=== PATIENT | female | born 1970 | race Caucasian/White ===

== ENCOUNTER 2023-03-07 14:00 | Inpatient (IN) | payer OTHER ==
[~2023-03-07] VITALS: Ht 165.1 cm; Wt 77.3 kg
[2023-03-07] MEDS ORDERED: ACETAMINOPHEN 325MG TABLET PO STA (14:18)
[2023-03-07] MEDS ORDERED: ONDANSETRON HCL 4MG/2ML INJ IV STA (14:18)
[2023-03-07] MEDS ORDERED: MECLIZINE 25MG TABLET PO ONE (14:30)
[2023-03-07 16:04] LABS: BASOPHILS % 0.7 % (0.0-2.0); HEMATOCRIT. 40.6 % (36.0-48.0); HEMOGLOBIN. 13.7 g/dL (12.0-16.0); LYMPHOCYTES % 25.1 % (20.0-50.0); MEAN CORPUSCULAR HEMOGLOBIN 30.4 pg (28.0-32.0); MEAN CORPUSCULAR HGB CONC 33.7 g/dL (31.0-37.0); MEAN CORPUSCULAR VOLUME 90.2 fL (81.0-99.0); MEAN PLATELET VOLUME 7.8 fl (7.4-10.4); MONOCYTES % 7.1 % (2.0-8.0); NEUTROPHILS % 66.1 % (40.0-76.0); PLATELET 339 x1000/uL (130-400); RED CELL DISTRIBUTION WIDTH 14.1 % (11.6-14.6); WHITE BLOOD COUNT 7.6 x1000/uL (4.5-11.0)
[2023-03-07 16:17] LABS: CHLORIDE 108 mEq/L (98-107); INDEX HEMOLYSI 1 (1-3); INDEX ICTERIC 1 (1-4); INDEX LIPEMIC 1 (1-3); POTASSIUM 3.4 mEq/L (3.5-5.1); SODIUM 137 mEq/L (136-145)
[2023-03-07 16:26] LABS: ALANINE AMINOTRANSFERASE 27 IU/L (13-61); ALBUMIN 4.1 g/dL (3.4-5.0); ASPARTATE AMINOTRANSFERASE 13 IU/L (15-37); BILIRUBIN TOTAL 0.4 mg/dL (0.1-1.0); CARBON DIOXIDE 26 mEq/L (21-32); CREATININE 0.7 mg/dL (0.6-1.3); GLUCOSE 95 mg/dL (70-105); TROPONIN I HIGH SENSITIVITY 4 ng/L (<54); UREA NITROGEN BLOOD 11 mg/dL (7-21)
[2023-03-07 16:46] LABS: HCG SCREEN NEGATIVE
[2023-03-07] MEDS ORDERED: HYDROCODONE/ACETAMINOPHEN 5/325MG TABLET PO PRN (22:45)
[2023-03-07] MEDS ORDERED: NALOXONE HCL 0.4MG/ML VIAL IV PRN (23:00)
[2023-03-07] MEDS ORDERED: ONDANSETRON HCL 4MG/2ML INJ IV PRN (23:00)
[2023-03-07] MEDS: LOSARTAN 50 MG TABLET PO SCH (23:25)
[2023-03-07 23:30] VITALS: BP 139/89; PULSE 61; RESP 17; TEMP 98.3
[2023-03-08] VITALS (8 sets, daily range): BP systolic 98–139; BP diastolic 67–85; PULSE 57–77; RESP 13–20; TEMP 97.3–98.3; O2SAT 98
[2023-03-08] MEDS: LOSARTAN 50 MG TABLET PO SCH (08:19)
[2023-03-08 08:31] LABS: BASOPHILS % 0.9 % (0.0-2.0); EOSINOPHILS % 1.2 % (0.0-5.0); HEMATOCRIT. 41.7 % (36.0-48.0); HEMOGLOBIN. 13.9 g/dL (12.0-16.0); MEAN CORPUSCULAR HEMOGLOBIN 30.4 pg (28.0-32.0); MEAN CORPUSCULAR HGB CONC 33.3 g/dL (31.0-37.0); MEAN CORPUSCULAR VOLUME 91.2 fL (81.0-99.0); MEAN PLATELET VOLUME 7.7 fl (7.4-10.4); MONOCYTES % 9.6 % (2.0-8.0); NEUTROPHILS % 51.3 % (40.0-76.0); PLATELET 313 x1000/uL (130-400); RED BLOOD CELL COUNT 4.57 mill/uL (4.2-5.4); RED CELL DISTRIBUTION WIDTH 14.4 % (11.6-14.6); WHITE BLOOD COUNT 5.8 x1000/uL (4.5-11.0)
[2023-03-08 08:59] LABS: CHLORIDE 107 mEq/L (98-107); INDEX HEMOLYSI 1 (1-3); INDEX ICTERIC 1 (1-4); INDEX LIPEMIC 1 (1-3); POTASSIUM 4.2 mEq/L (3.5-5.1); SODIUM 139 mEq/L (136-145)
[2023-03-08] MEDS ORDERED: ASPIRIN 81MG TABLET PO SCH (09:00)
[2023-03-08] MEDS ORDERED: AMLODIPINE 10MG TABLET PO SCH (09:00)
[2023-03-08 09:13] LABS: ALANINE AMINOTRANSFERASE 26 IU/L (13-61); ALBUMIN 3.6 g/dL (3.4-5.0); ASPARTATE AMINOTRANSFERASE 15 IU/L (15-37); BILIRUBIN TOTAL 0.7 mg/dL (0.1-1.0); CALCIUM 8.8 mg/dL (8.5-10.1); CARBON DIOXIDE 27 mEq/L (21-32); CHOLESTEROL 199 mg/dL (<200); CREATININE 0.7 mg/dL (0.6-1.3); GLUCOSE 80 mg/dL (70-105); HDL CHOLESTEROL 51 mg/dL (40-59); LDL CHOLESTEROL 135 mg/dL (5-100); PROTEIN TOTAL 7.3 g/dL (6.0-8.3); TRIGLYCERIDE 88 mg/dL (0-150); UREA NITROGEN BLOOD 13 mg/dL (7-21)
[2023-03-08 15:15] LABS: CLARITY URINE CLEAR (CLEAR); COLOR URINE YELLOW (YELLOW); GLUCOSE URINE NEGATIVE (NEGATIVE); KETONES URINE NEGATIVE (NEGATIVE); LEUKOCYTE ESTERASE URINE NEGATIVE (NEGATIVE); NITRITE URINE NEGATIVE (NEGATIVE); OCCULT BLOOD URINE NEGATIVE (NEGATIVE); PROTEIN URINE NEGATIVE (NEGATIVE); SPECIFIC GRAVITY URINE 1.005 (1.005-1.030); UROBILINOGEN URINE 0.2 E.U./dL (0.2-1.0)
[2023-03-08] MEDS ORDERED: AMLO10TA80 MT (17:29)
[2023-03-08] MEDS ORDERED: POTASSIUM CHLORIDE 20MEQ TABLET SR PO NR (17:30)
[2023-03-08] MEDS ORDERED: ERGO1250 PO (17:31)
== END 2023-03-08 19:15 | disposition home or self-care (01) | DRG 48 ==
LOC: ER 14:00 → 3WST 18:33 → EDBEDREQTM 18:53 → EDBEDREQ 18:53
PROVIDERS: ADMIT Internal Medicine; ATTEND Internal Medicine
DX: G90.8 Other disorders of autonomic nervous system (principal); G43.909 Migraine, unspecified, not intractable, without status migrainosus; I10 Essential (primary) hypertension
CPT/HCPCS: 36415; 70496; 70498; 70551; 80053; 80061; 81003; 84484; 84703; 85025; 93005; 99285; J2405; J8597